=== PATIENT | female | born 1990 | race Caucasian/White ===

== ENCOUNTER → 2016-07-01 | Day surgery (SDC) | payer OTHER ==
[~2016-07-01] VITALS: Ht 160 cm; Wt 68.0 kg
[~2016-07-01] MED LIST: DICLOFENAC SODI50 M3 PO; GUAIFENESIN-COD10 ML PO; KEFLEX500 MG PO; SINGULAIR10 M1 PO
--- NOTE | 2016-07-06 19:10 | Operative Report ---
Operative/Inv Procedure Report Surgery Date: 07/01/16 Name of Procedure: Suction D&C Pre-Operative Diagnosis: Missed AB Post-Operative Diagnosis: Same Estimated Blood Loss: less than 50ml Surgeon/Sand Drier: KANE SCHWAB,KATE Barbour Anesthesia: moderate sedation Operative/Procedure Note Note: Procedure note patient was taken the operating room placed on position after adequate anesthesia patient placed in dorsolithotomy position the vagina prepped draped fashion bladder was catheterized examination anesthesia performed single- tooth tenaculum was on the Intralipid surgeons down traction cervix is a 20 Hegar to left insertion sharp curet sharp curettage performed at this point 8 curved was placed gently into the uterus suction curettage performed pricey conception were noted at this point sharp curettage of the endometrial lining performed I total a positive uterine cry CRI. All instruments removed the vagina patient was returned spine position intravenous Pitocin had been started dictating uterine contractility patient tolerated that wel on bleeding was noted during the curettage at that hemostase with apparent patient was awakened from anesthesia and transferred awake alert counts correct . Findings: 12 week size uterus cervix closed no adnexal masses pricey conception noted
== END ==
LOC: STS 03:13
DX: O02.1 Missed abortion (principal); O03.9 Complete or unspecified spontaneous abortion without complication
CPT/HCPCS: J2250

== ENCOUNTER 2017-07-11 09:41 | Emergency (ER) | payer OTHER ==
[~2017-07-11] VITALS: Ht 160 cm; Wt 68.0 kg
--- NOTE | 2017-07-11 09:52 | ED GI/GU/ABDOMINAL COMPLAINT ---
History of Present Illness General Chief Complaint: Uterine Contractions(Pregnacy) Stated Complaint: 10 WEEKS PREG. SPOTTING Source: patient, family, old records Exam Limitations: no limitations Vital Signs & Intake/Output Vital Signs & Intake/Output Vital Signs Date Time Temp Pulse Resp B/P B/P Pulse O2 O2 Flow FiO2 Mean Ox Delivery Rate 07/11 1123 98.5 94 18 119/64 100 Room Air 07/11 0945 96.7 120 18 124/77 97 Room Air Room Air Allergies Uncoded Allergies: SEASONAL ALLERGIES (Intermediate, NASAL CONGESTION 06/30/16) Reconcile Medications Montelukast Sodium (Singulair) 10 MG TABLET 1 TAB PO DAILY ALLERGIES ( Reported) Triage Note: TRIAGE: 27 Y/O FEMALE PRESENTS C/O VAGINAL SPOTTING SINCE THIS MORNING. REPORTS ELABORATE HISTORY INCLUDING 2 ABORTIONS. DENIES PAIN AT PRESENT. OB: DR KANE SANCHEZ: "PATIENT TO BE SEEN IN ED." Triage Nurses Notes Reviewed? yes ? y Is pt currently ? No Onset: Abrupt Duration: hour(s): (1), constant Timing: single episode today Quality/Severity: no pain Activities at Onset: none No Modifying Factors: none Associated Symptoms: denies HPI: 27-year-old female approximately 10 weeks. Presents here for evaluation after developing brown vaginal spotting for the past 1 hour. She denies abdominal pain. She had a confirmed IUP and transvaginal ultrasound last week at her [facility] NURSE's office. She denies fever chills urinary complaints nausea vomiting diarrhea. No history of abdominal surgeries in the past. No modifying factors or associated symptoms otherwise. She has only needed to use one pad since the symptoms began (Will Katz) Past History Travel History Traveled to [place] past 21 day No Medical History Any Pertinent Medical History? see below for history Neurological: NONE EENT: NONE Cardiovascular: NONE Respiratory: SEASONAL ALLERGIES Gastrointestinal: NONE Hepatic: NONE Renal: NONE Musculoskeletal: NONE Psychiatric: NONE Endocrine: NONE Blood Disorders: NONE Cancer(s): NONE LAUNDRY ATTENDANT/Reproductive: NONE Surgical History Surgical History: non-contributory Psychosocial History What is your primary language Occitan Tobacco Use: Never used ETOH Use: denies use Illicit Drug Use: denies illicit drug use Family History Hx Contributory? No (Will Katz) Review of Systems Review of Systems Constitutional: Reports: see HPI. Comments Review of systems: See HPI, All other systems negative. Constitutional, no chills no fever, HEENT: no sore throat no congestion Cardiovascular: No chest pain Skin: no rashes, no change in skin Respiratory: No dyspnea no cough GI: No nausea no vomiting, Muscle skeletal: No joint pain, no back pain Neurologic: no headache Heme/endocrine: No bruising (Will Katz) Physical Exam Physical Exam General Appearance: well developed/nourished, alert, awake Gastrointestinal: soft Comments: Well-developed well-nourished person in no acute distress HEENT: Normal EENT exam; PERRL, EOMI. HEAD is atraumatic. moist mucous membranes. Neck: Supple,normal range of motion Back: . Full range of motion Cardiovascular: Regular rate and rhythms no murmurs rub Respiratory: Chest nontender.There were no bony deformities, no asymmetry. No respiratory distress. Patient speaking in full complete sentences. Breath sounds clear to auscultation bilaterally: NO W/R/R Abdomen: Soft, nontender nondistended, no appreciable organomegaly. Normal bowel sounds. No rebound/guarding Extremity: No edema, full range of motion of extremities Neuro: Alert oriented x3, motor sensory normal. There were no obvious focal neurologic abnormalities. Skin: No appreciable rash on exposed skin, skin is warm and dry. Psych: Mood and affect is normal, memory and judgment is normal. Core Measures ACS in differential dx? No Sepsis Present: No Sepsis Focused Exam Completed? No (Will Katz) Progress Differential Diagnosis: intrauterine , threatened AB, UTI/pyelo Plan of Care: Orders Procedure Date/time Status URINALYSIS 07/11 950 Complete HUMAN BETA HCG TITRE 07/11 950 Complete COMPREHENSIVE METABOLIC PANEL 07/11 950 Complete CBC WITHOUT DIFFERENTIAL 07/11 950 Complete RHOGAM WORK-UP 07/11 950 Complete Laboratory Tests 07/11/17 1013: Anion Gap 11, Estimated GFR > 60, BUN/Creatinine Ratio 11.7, Glucose 89, Calcium 9.5, Total Bilirubin 0.4, AST 20, ALT 22, Alkaline Phosphatase 50, Total Protein 7.5, Albumin 4.1, Globulin 3.4, Albumin/Globulin Ratio 1.2, Beta HCG, Quant 09717.0, CBC w Diff NO MAN DIFF REQ, RBC 4.05 L, MCV 92.8, MCH 31.2 H, MCHC 33.6, RDW 13.3, MPV 6.5 L, Gran % 61.2, Lymphocytes % 31.9, Monocytes % 6.4, Eosinophils % 0.2, Basophils % 0.3, Absolute Granulocytes 3.1, Absolute Lymphocytes 1.6, Absolute Monocytes 0.3, Absolute Eosinophils 0, Absolute Basophils 0, Urine Color YEL, Urine Clarity CLEAR, Urine pH 7.0, Ur Specific [place] <= 1.005, Urine Protein NEG, Urine Ketones NEG, Urine Nitrite NEG, Urine Bilirubin NEG, Urine Urobilinogen 0.2, Ur Leukocyte Esterase TRACE H, Ur Microscopic SEDIMENT EXAMINED, Urine RBC RARE, Urine WBC RARE, Ur Epithelial Cells FEW, Urine Bacteria FEW H, Urine Hemoglobin TRACE-INTACT, Urine Glucose NEG Ultrasound ordered patient denies pain labs ordered resting in no acute distress Catheter remains in no acute distress at updated on all of her labs pending ultrasound. CASE D/W DR JO agrees with plan call placed [facility]URSE case d/w dr gould-I discussed with him her ultrasound results, he advised pelvic rest serial ultrasounds close. With Dr. Chen tomorrow. I discussed the patient and care spotting has not gotten worse there is no pain I don't close discussion with the patient and family regarding her results I answer all the questions they feel comfortable with plan Diagnostic Imaging: Viewed by Me: Ultrasound. Discussed w/RAD: Ultrasound. Radiology Impression: PATIENT: HELEN SAEZ PRESENT AGE: 27 PATIENT ACCOUNT NO: [id number] : 89 LOCATION: [facility] ORDERING PHYSICIAN: Will ALMARAZ SERVICE DATE: 07/11/17 EXAM TYPE: US - US TRANSVAG EXAMINATION: ULTRASOUND CLINICAL INFORMATION: 27-year-old female, 10 weeks , presented with spotting, vaginal bleeding. Suspected threatened . COMPARISON: None. TECHNIQUE: Transabdominal pelvic ultrasound. FINDINGS: There is a single live intrauterine gestation. An incidental note is made of 0.6 cm hypoechogenicity around the gestational sac, consistent with tiny perigestational hemorrhage. Yolk sac is visualized. Measurements: [place]-rump length - 2.84 cm. The heart rate was 170 beats per minute. The best estimated gestational age based upon these sonographic measurements is 10 weeks. This yields an estimated date of confinement (EDC) of 02/06/2018. The cervical length is normal measuring 3.9 cm. The cervix is closed. The ovaries appear normal, with the right ovary measuring 3.4 x 1.5 x 3.3 cm with a volume of 8.8 mL and the left ovary measuring 5.3 x 2.3 x 3.2 cm with a volume of 20.4 mL. Specific note is made of a intraovarian hypoechogenicity within the left ovary measuring 1.6 x 1.0 x 1.6 cm, most consistent with a corpus luteal cyst. No adnexal mass or free fluid is seen. IMPRESSION: 1. 0.6 cm. [place]- gestational hemorrhage with closed cervix. Follow- up sonographic imaging surveillance as appropriate may be considered for further clarification. 2. Single live intrauterine with estimated gestational age of 10 weeks. 3. Bilateral morphologically normal-appearing ovaries with features suggestive of corpus luteal cyst within the left ovary. DICTATED BY: Jacqueline Vegas MD DATE/TIME DICTATED:07/11/171156 MANUFACTURING RECRUITER:ANNIE DATE/TIME TRANSCRIBED:07/11/171156 CONFIDENTIAL, DO NOT COPY WITHOUT APPROPRIATE AUTHORIZATION. <Electronically signed in Other Vendor System> SIGNED BY: Jacqueline Vegas MD 07/11/17 1212 Initial ED EKG: none (Will Katz) Departure Departure Time of Disposition: 1246 Disposition: HOME OR SELF CARE Condition: Stable Clinical Impression Primary Impression: Secondary Impressions: Threatened Referrals: Denise SCHWAB,Ashlee (PCP/Family) Aurora Chen MD Additional Instructions: Follow up with Dr. Chen tomorrow. Pelvic rest, tylenol if needed for pain. Return with any concerns Departure Forms: Customer Survey General Discharge Information (Will Katz) PA/GUIDE CRUISE Co-Sign Statement Statement: ED Attending supervision documentation- x I saw and evaluated the patient. I have also reviewed all the pertinent lab results and diagnostic results. I agree with the findings and the plan of care as documented in the PA's/GUIDE CRUISE's documentation. [] I have reviewed the ED Record and agree with the PA's/GUIDE CRUISE's documentation. [] Additions or exceptions (if any) to the PAs/GUIDE CRUISE's note and plan are summarized below: [] (Bianca SCHWAB,Stoney)
[2017-07-11 10:27] LABS: ABSOLUTE BASOPHIL COUNT 0 /CUMM (0.0-0.2); ABSOLUTE EOSINOPHIL COUNT 0 /CUMM (0.0-0.7); ABSOLUTE GRANULOCYTE CT 3.1 /CUMM (1.4-6.5); ABSOLUTE LYMPH COUNT 1.6 /CUMM (1.2-3.4); ABSOLUTE MONOCYTE COUNT 0.3 /CUMM (0.10-0.60); BASOPHIL % 0.3 % (0.0-2.0); EOSINOPHIL % 0.2 % (0-5); GRANULOCYTE % 61.2 % (42.2-75.2); HEMATOCRIT 37.6 % (37-47); MEAN CORPUSCULAR HGB 31.2 PG (27.0-31.0); MEAN CORPUSCULAR HGB CONC 33.6 G/DL (33.0-37.0); MEAN CORPUSCULAR VOLUME 92.8 FL (81.0-99.0); MEAN PLATELET VOLUME 6.5 FL (7.4-10.4); PLATELET COUNT 321 /CUMM (130-400); RBC DISTRIBUTION WIDTH 13.3 % (11.5-14.5); RED BLOOD CELL CT 4.05 /CUMM (4.20-5.40)
[2017-07-11 11:23] VITALS: BP 119/64
--- NOTE | 2017-07-11 12:12 | ULTRASOUND REPORT ---
EXAMINATION: ULTRASOUND CLINICAL INFORMATION: 27-year-old female, 10 weeks , presented with spotting, vaginal bleeding. Suspected threatened . COMPARISON: None. TECHNIQUE: Transabdominal pelvic ultrasound. FINDINGS: There is a single live intrauterine gestation. An incidental note is made of 0.6 cm hypoechogenicity around the gestational sac, consistent with tiny perigestational hemorrhage. Yolk sac is visualized. Measurements: [place]-rump length - 2.84 cm. The heart rate was 170 beats per minute. The best estimated gestational age based upon these sonographic measurements is 10 weeks. This yields an estimated date of confinement (EDC) of 02/06/2018. The cervical length is normal measuring 3.9 cm. The cervix is closed. The ovaries appear normal, with the right ovary measuring 3.4 x 1.5 x 3.3 cm with a volume of 8.8 mL and the left ovary measuring 5.3 x 2.3 x 3.2 cm with a volume of 20.4 mL. Specific note is made of a intraovarian hypoechogenicity within the left ovary measuring 1.6 x 1.0 x 1.6 cm, most consistent with a corpus luteal cyst. No adnexal mass or free fluid is seen. IMPRESSION: 1. 0.6 cm. [place]- gestational hemorrhage with closed cervix. Follow-up sonographic imaging surveillance as appropriate may be considered for further clarification. 2. Single live intrauterine with estimated gestational age of 10 weeks. 3. Bilateral morphologically normal-appearing ovaries with features suggestive of corpus luteal cyst within the left ovary.
== END 2017-07-11 13:06 ==
LOC: ERH 09:41
PROVIDERS: Physician Assistant Medical
DX: O20.0 Threatened abortion (principal)
CPT/HCPCS: 76817; 81001